=== PATIENT | male | born 1975 | race Caucasian/White ===

== ENCOUNTER 2023-01-03 11:14 | Day surgery (SDC) | payer OTHER ==
[2022-12-29 11:03] LABS: BASOPHILS # (AUTO) 0.1 X10'3 (0-0.2); EOSINOPHILS # (AUTO) 0.3 X10'3 (0-0.9); EOSINOPHILS % (AUTO) 6.8 % (0-6); HEMATOCRIT 45.7 % (42.0-52.0); HEMOGLOBIN 15.5 g/dl (14.0-17.9); LYMPHOCYTES # (AUTO) 1.7 X10'3 (1.1-4.8); LYMPHOCYTES % (AUTO) 33.9 % (21-51); MEAN CORPUSCULAR HEMOGLOBIN 30.5 PG (27.0-31.0); MEAN CORPUSCULAR HGB CONC 33.9 g/dL (33.0-36.5); MEAN CORPUSCULAR VOLUME 89.9 FL (78-98); MEAN PLATELET VOLUME 8.4 FL (7.4-10.4); MONOCYTES # (AUTO) 0.6 X10'3 (0-0.9); MONOCYTES % (AUTO) 11.4 % (2-12); NEUTROPHILS # (AUTO) 2.3 X10'3 (1.8-7.7); NEUTROPHILS % (AUTO) 46.9 % (42-75); PLATELET COUNT 218 X10'3 (140-440); RED BLOOD COUNT 5.08 X10'6 (4.70-6.10); RED CELL DISTRIBUTION WIDTH 13.5 % (11.5-14.5); WHITE BLOOD COUNT 4.9 X10'3 (4.5-11.0)
[2022-12-29 11:15] LABS: ALBUMIN 4.1 G/DL (3.4-5.0); ANION GAP 8 (8-16); BLOOD UREA NITROGEN 22 MG/DL (7-18); BUN/CREATININE RATIO 23.7 (10.0-20.0); CHLORIDE 102 MMOL/L (99-107); CREATININE 0.93 MG/DL (0.60-1.10); GLUCOSE 108 MG/DL (70-104); POTASSIUM 4.7 MMOL/L (3.5-5.1); SODIUM 139 MMOL/L (135-145); TOTAL CARBON DIOXIDE 29.1 MMOL/L (24-32); eGFR 86 ML/MIN
[2022-12-29 11:17] LABS: APTT 35 SECONDS (22-32); PROTHROMBIN TIME 10.4 SECONDS (9.0-12.0)
[~2023-01-03] VITALS: Ht 180.3 cm; Wt 110.7 kg
[2023-01-03 11:30] VITALS: BP 139/89; PULSE 85; RESP 16; TEMP 98.2; O2SAT 98
[2023-01-03] MEDS ORDERED: normal saline 1000ml 1,000 ML IV SCH ×2 (11:30→11:50)
[2023-01-03] MEDS ORDERED: ROSU20TA73 PO (11:42)
[2023-01-03] MEDS ORDERED: MULT-1085 PO (11:42)
[2023-01-03] MEDS ORDERED: APIX5TAB3 PO (11:42)
[2023-01-03] MEDS ORDERED: CHOL500049 PO (11:42)
[2023-01-03] MEDS ORDERED: SOTA80TA PO (11:42)
[2023-01-03] MEDS ORDERED: fentaNYL/PF 50MCG/1 ML 2ML syringe IV ONE (11:50)
[2023-01-03] MEDS ORDERED: MIDAZolam 1mg/ml 10ml vial IV ONE (11:50)
[2023-01-03 12:00] VITALS: RESP 16; O2SAT 98
[2023-01-03 12:47] VITALS: RESP 16
== END 2023-01-03 13:21 | disposition home or self-care (01) ==
LOC: SSTAY O 11:14
PROVIDERS: ATTEND Student in an Organized Health Care Education/Training Program
DX: I48.91 Unspecified atrial fibrillation (principal); Z53.8 Procedure and treatment not carried out for other reasons; I10 Essential (primary) hypertension; E78.5 Hyperlipidemia, unspecified; Z79.01 Long term (current) use of anticoagulants; Z79.899 Other long term (current) drug therapy
CPT/HCPCS: 36415; 80048; 85025; 85610; 85730; 93005; J2250; J3010; J7030; A4620

== ENCOUNTER 2023-02-07 10:49 | Day surgery (SDC) | payer OTHER ==
[2023-02-03 12:26] LABS: BASOPHILS # (AUTO) 0.1 X10'3 (0-0.2); BASOPHILS % (AUTO) 1.3 % (0-1); EOSINOPHILS # (AUTO) 0.3 X10'3 (0-0.9); EOSINOPHILS % (AUTO) 5.6 % (0-6); HEMATOCRIT 46.4 % (42.0-52.0); HEMOGLOBIN 15.7 g/dl (14.0-17.9); LYMPHOCYTES # (AUTO) 1.6 X10'3 (1.1-4.8); LYMPHOCYTES % (AUTO) 33.3 % (21-51); MEAN CORPUSCULAR HEMOGLOBIN 30.5 PG (27.0-31.0); MEAN CORPUSCULAR HGB CONC 33.8 g/dL (33.0-36.5); MEAN CORPUSCULAR VOLUME 90.2 FL (78-98); MEAN PLATELET VOLUME 8.7 FL (7.4-10.4); MONOCYTES # (AUTO) 0.6 X10'3 (0-0.9); MONOCYTES % (AUTO) 11.2 % (2-12); NEUTROPHILS # (AUTO) 2.4 X10'3 (1.8-7.7); NEUTROPHILS % (AUTO) 48.6 % (42-75); PLATELET COUNT 222 X10'3 (140-440); RED BLOOD COUNT 5.15 X10'6 (4.70-6.10); RED CELL DISTRIBUTION WIDTH 13.8 % (11.5-14.5); WHITE BLOOD COUNT 4.9 X10'3 (4.5-11.0)
[2023-02-03 12:39] LABS: ALBUMIN 4.1 G/DL (3.4-5.0); ANION GAP 8 (8-16); BLOOD UREA NITROGEN 16 MG/DL (7-18); BUN/CREATININE RATIO 15.4 (10.0-20.0); CALCIUM 9.3 MG/DL (8.5-10.1); CHLORIDE 101 MMOL/L (99-107); CREATININE 1.04 MG/DL (0.60-1.10); GLUCOSE 105 MG/DL (70-104); POTASSIUM 4.3 MMOL/L (3.5-5.1); SODIUM 138 MMOL/L (135-145); eGFR 76 ML/MIN
[2023-02-03 12:41] LABS: APTT 35 SECONDS (22-32); PROTHROMBIN TIME 10.6 SECONDS (9.0-12.0)
[2023-02-07] VITALS (10 sets, daily range): BP systolic 102–137; BP diastolic 57–92; PULSE 49–83; RESP 14–16; TEMP 98.2; O2SAT 95–99
[~2023-02-07] VITALS: Ht 180.3 cm; Wt 111.8 kg
[~2023-02-07 10:49] MED LIST: APIX5TAB3 PO; CHOL500049 PO; MULT-1085 PO; ROSU20TA73 PO; SOTA80TA PO
[2023-02-07] MEDS ORDERED: APIX5TAB3 PO (11:11)
[2023-02-07] MEDS ORDERED: normal saline 1000ml 1,000 ML IV SCH (11:30)
[2023-02-07] MEDS ORDERED: MIDAZolam 1mg/ml 10ml vial IV ONE (11:30)
[2023-02-07] MEDS ORDERED: fentaNYL/PF 50MCG/1 ML 2ML syringe IV ONE (11:30)
== END 2023-02-07 14:00 | disposition home or self-care (01) ==
LOC: SSTAY O 10:49
PROVIDERS: ATTEND Student in an Organized Health Care Education/Training Program
DX: I48.91 Unspecified atrial fibrillation (principal); I10 Essential (primary) hypertension; E78.5 Hyperlipidemia, unspecified; Z79.899 Other long term (current) drug therapy; Z79.01 Long term (current) use of anticoagulants
CPT/HCPCS: 36415; 80048; 85025; 85610; 85730; 92960; 93005; J2250; J3010; J7030; A4620